=== PATIENT | female | born 1955 | race Caucasian/White ===

== ENCOUNTER 2017-01-27 14:11 | Emergency (ER) | payer SELFPAY ==
[2017-01-27 14:12] VITALS: BMI 25.8
[2017-01-27 14:52] VITALS: TEMP 98.2; O2SAT 100
--- NOTE | 2017-01-27 16:09 | C.PDOC ---
History Of Present Illness 61-year-old female, PMhx includes Hypertension, presents to the emergency department requesting medication refill. Patient states she is visiting from , and ran out of her Atenolol today. She denies physical complaints - no shortness of breath, chest pain, palpitations, KRAUSE, dizziness. Time Seen by Provider: 01/27/17 14:42 Chief Complaint (Nursing): Med Refill History Per: Patient History/Exam Limitations: no limitations Severity: None Past Medical History Reviewed: Historical Data, Nursing Documentation, Vital Signs Vital Signs: Last Vital Signs Temp 98.2 F 01/27/17 14:48 Pulse 54 L 01/27/17 16:33 Resp 17 01/27/17 16:33 BP 201/102 H 01/27/17 16:33 Pulse Ox 100 01/27/17 18:32 - Medical History PMH: HTN Family History: States: No Known Family Hx - Social History Hx Tobacco Use: No Hx Alcohol Use: No Hx Substance Use: No - Immunization History Hx Tetanus Toxoid Vaccination: No Hx Influenza Vaccination: Yes Hx Pneumococcal Vaccination: No Review Of Systems Except As Marked, All Systems Reviewed And Found Negative. Constitutional: Negative for: Fever Cardiovascular: Negative for: Chest Pain, Palpitations Respiratory: Negative for: Cough, Shortness of Breath Gastrointestinal: Negative for: Nausea, Vomiting, Abdominal Pain, Diarrhea Musculoskeletal: Negative for: Back Pain Skin: Negative for: Rash Neurological: Negative for: Weakness, Numbness, Incoordination, Confusion, Headache, Dizziness Physical Exam - Physical Exam Appears: Well, Non-toxic, No Acute Distress Skin: Warm, Dry, No Rash Head: Atraumatic, Normacephalic Eye(s): bilateral: Normal Inspection, PERRL, EOMI Oral Mucosa: Moist Cardiovascular: Rhythm Regular Respiratory: Normal Breath Sounds, No Rales, No Rhonchi, No Wheezing Extremity: Normal ROM Neurological/Psych: Oriented x3 Gait: Steady ED Course And Treatment O2 Sat by Pulse Oximetry: 100 (RA) Pulse Ox Interpretation: Normal Progress Note: Patient given PO atenolol. Reevaluation Time: 16:15 Reassessment Condition: Improved (Patient reassessed, is resting comfortably, denies any current symptoms. Patient given Rx for her atenolol, and instructed to follow up in the medical clinic in 1-2 days for further eval of BP/future refills. She understands she should return to ED if symptoms worsen.) Disposition Counseled Patient/Family Regarding: Diagnosis, Need For Followup, Rx Given - Disposition Referrals: [facility] [Outside] Disposition: HOME/ ROUTINE Disposition Time: 16:15 Condition: STABLE Additional Instructions: SEGUIMIENTO CON JARVIS DOCTOR / CLNICA EN 1-2 GONZALEZ USTED NECESITA OBTENER JARVIS MEDICIN DE PRESIN ARTERIAL DE JARVIS DOCTOR / CLNICA EN EL FUTURO! DEVUELVA A LA TORIE DE EMERGENCIA SI TIENE CUALQUIER SNTOMA PREOCUPANTE Prescriptions: Atenolol [Tenormin] 100 mg PO DAILY #30 tablet Instructions: Hypertension (ED), Medicine Refill (ED) Print Language: KINYARWANDA - Clinical Impression Clinical Impression: Hypertension, Medication refill - Scribe Statement The provider has reviewed the documentation as recorded by the Scribe Matt Velazquez All medical record entries made by the Scribe were at my direction and personally dictated by me. I have reviewed the chart and agree that the record accurately reflects my personal performance of the history, physical exam, medical decision making, and the department course for this patient. I have also personally directed, reviewed, and agree with the discharge instructions and disposition.
[2017-01-27 16:34] VITALS: BP 201/102; PULSE 54; RESP 17
== END 2017-01-27 16:35 | disposition home or self-care (01) ==
LOC: C.ER 14:11
DX: Z76.0 Encounter for issue of repeat prescription (principal); I10 Essential (primary) hypertension

== ENCOUNTER 2018-11-23 11:27 | Emergency (ER) | payer SELFPAY ==
[2018-11-23 11:27] VITALS: BMI 25.8
[2018-11-23 11:45] VITALS: RESP 16; TEMP 98.1; O2SAT 98
--- NOTE | 2018-11-23 11:45 | C.PDOC ---
History Of Present Illness 63 y/o female with a PMHx of HTN, presents to the ED complaining of low back pain for 2 weeks. States she missed a chair when attempting to sit and fell. Patient now complains of bilateral low back pain, worse with movement. No extremity weakness, numbness, or paresthesias. Otherwise she denies any fever, chills, or urinary complaints. Time Seen by Provider: 11/23/18 11:42 Chief Complaint (Nursing): Back Pain History Per: Patient History/Exam Limitations: no limitations Onset/Duration Of Symptoms: Days Current Symptoms Are (Timing): Still Present Past Medical History Reviewed: Historical Data, Nursing Documentation, Vital Signs Vital Signs: Last Vital Signs Temp 98.1 F 11/23/18 11:38 Pulse 71 11/23/18 11:38 Resp 16 11/23/18 11:38 BP 188/118 H 11/23/18 11:38 Pulse Ox 98 11/23/18 11:38 - Medical History PMH: HTN Denies: Chronic Kidney Disease Family History: States: Unknown Family Hx - Social History Hx Tobacco Use: No Hx Alcohol Use: No Hx Substance Use: No - Immunization History Hx Tetanus Toxoid Vaccination: No Hx Influenza Vaccination: Yes Hx Pneumococcal Vaccination: No Review Of Systems Except As Marked, All Systems Reviewed And Found Negative. Constitutional: Negative for: Fever, Chills Cardiovascular: Negative for: Chest Pain Respiratory: Negative for: Shortness of Breath Gastrointestinal: Negative for: Nausea, Vomiting, Abdominal Pain Genitourinary: Negative for: Dysuria, Frequency, Hematuria Musculoskeletal: Positive for: Back Pain Neurological: Negative for: Weakness, Numbness, Incoordination Physical Exam - Physical Exam Appears: Well, Non-toxic, No Acute Distress Skin: Normal Color, Warm, Dry Head: Atraumatic, Normacephalic Eye(s): bilateral: Normal Inspection, PERRL, EOMI Oral Mucosa: Moist Neck: Normal ROM Chest: Symmetrical Respiratory: No Accessory Muscle Use, Other (No respiratory distress) Back: No Vertebral Tenderness, Paraspinal Tenderness (to bilateral paralumbar areas), Other (No step off or deformity) Extremity: Bilateral: Atraumatic, Normal Color And Temperature, Normal ROM Neurological/Psych: Oriented x3, Normal Motor, Normal Sensation Gait: Steady ED Course And Treatment O2 Sat by Pulse Oximetry: 98 (RA) Pulse Ox Interpretation: Normal Medical Decision Making Medical Decision Making: Impression: Low back pain far off midline , no midline ttp stepoffs. suspect msk pain. no clincial concern for acute fx. Plan: * 30 mg IM Toradol Patient is stable for discharge home. Provided with RX for muscle relaxant and pain medication. Advised to follow up with PMD or return if worse. Disposition - Disposition Referrals: Michael Couch MD [Non-Staff] - Disposition: HOME/ ROUTINE Disposition Time: 12:00 Condition: STABLE Additional Instructions: follow up with your doctor/clinic. return to any er with worsneing. you will need further testing and workup as an outpatient. Prescriptions: Cyclobenzaprine [Cyclobenzaprine HCl] 10 mg PO DAILY PRN #10 tab PRN Reason: Muscle Spasm Naproxen [Naprosyn] 500 mg PO BID PRN #14 tab PRN Reason: Pain, Mild (1-3) Instructions: Low Back Pain (DC) Forms: [employer] (Northern Irish) - Clinical Impression Clinical Impression: Low back pain, Low back strain - Scribe Statement The provider has reviewed the documentation as recorded by the Gracie Turner Provider Attestation: All medical record entries made by the Gracie were at my direction and personally dictated by me. I have reviewed the chart and agree that the record accurately reflects my personal performance of the history, physical exam, medical decision making, and the department course for this patient. I have also personally directed, reviewed, and agree with the discharge instructions and disposition.
[2018-11-23 12:07] VITALS: BP 169/82; PULSE 72
== END 2018-11-23 12:08 | disposition home or self-care (01) ==
LOC: C.ER 11:27
DX: S39.012A Strain of muscle, fascia and tendon of lower back, initial encounter (principal); W18.39XA Other fall on same level, initial encounter
CPT/HCPCS: 96372; 99283; J1885

== ENCOUNTER 2018-12-24 13:38 | Emergency (ER) | payer SELFPAY ==
[2018-12-24 13:39] VITALS: BMI 25.8
[2018-12-24 13:55] VITALS: RESP 18
[2018-12-24] MEDS ORDERED: Dexamethasone 4 mg/1 ml IM STA (15:00)
[2018-12-24] MEDS ORDERED: Dexamethasone 4 mg/1 ml ONE (15:27)
--- NOTE | 2018-12-24 16:01 | RAD ---
Date of service: 12/24/2018 HISTORY: pleuritic chest pain COMPARISON: 11/30/2014 TECHNIQUE: Chest PA and lateral views FINDINGS: LUNGS: Current lung volumes greater than before. No consolidation. Clear lungs. PLEURA: No significant pleural effusion identified. No pneumothorax apparent. CARDIOVASCULAR: There is presence of aortic atherosclerotic calcification on x-ray. Mild cardiomegaly-similar No significant appearing pulmonary venous congestion. OSSEOUS STRUCTURES: No significant abnormalities. VISUALIZED UPPER ABDOMEN: Normal. OTHER FINDINGS: None. IMPRESSION: No acute cardiopulmonary pathology noted. Other findings as above.
--- NOTE | 2018-12-24 16:04 | RAD ---
Date of service: 12/24/2018 PROCEDURE: Radiographs of the Lumbar Spine. HISTORY: low back injury COMPARISON: No prior. TECHNIQUE: 3 views obtained. FINDINGS: BONES: There is 5 mm degenerative retrolisthesis of L1 on L2. There is normal lumbar lordosis. There is severe diffuse bone demineralization. There is an age indeterminate superior endplate compression fracture deformity in the T12 vertebral body. DISC SPACES: There is mild multilevel degenerative disc disease with anterior osteophytes, reduced disc heights and multilevel facet arthropathy, worse at L1-2. OTHER FINDINGS: There are no pathologic soft tissue calcifications. Both sacroiliac joints are normal. IMPRESSION: 1. Age indeterminate superior endplate compression fracture deformity in the T12 vertebral body. 2. Multilevel degenerative disc disease, worse at L1-2.
--- NOTE | 2018-12-24 17:11 | C.PDOC ---
History Of Present Illness Patient is a 63 year old female who presents to the ED c/o back pain that began 3 weeks ago when she fell off of a chair at home. Patient reports that she was initially seen in the ED 3 weeks ago and was given pain medications and discharged. She states that she still has pain that has worsened now. She denies any new injury, weakness, numbness, abdominal pain, saddle anesthesia, bowel or bladder incontinence. - HPI Time Seen by Provider: 12/24/18 14:19 Chief Complaint (Nursing): Back Pain History Per: Patient History/Exam Limitations: no limitations Onset/Duration Of Symptoms: Other (3 weeks) Recent travel outside of the [place]: No Additional History Per: Patient Past Medical History Reviewed: Historical Data, Nursing Documentation, Vital Signs Vital Signs: Last Vital Signs Temp 98 F 12/24/18 13:52 Pulse 88 12/24/18 14:58 Resp 18 12/24/18 13:52 BP 193/94 H 12/24/18 16:16 Pulse Ox 99 12/24/18 13:52 - Medical History PMH: HTN Denies: Chronic Kidney Disease Surgical History: No Surg Hx Family History: States: Unknown Family Hx - Social History Hx Tobacco Use: No Hx Alcohol Use: No Hx Substance Use: No - Immunization History Hx Tetanus Toxoid Vaccination: No Hx Influenza Vaccination: Yes Hx Pneumococcal Vaccination: No Review Of Systems Except As Marked, All Systems Reviewed And Found Negative. Gastrointestinal: Negative for: Diarrhea, Constipation Genitourinary: Negative for: Dysuria, Incontinence, Hematuria Musculoskeletal: Positive for: Back Pain Neurological: Negative for: Weakness, Numbness Physical Exam - Physical Exam Appears: Non-toxic, No Acute Distress Skin: Normal Color, Warm, Dry Head: Atraumatic, Normacephalic Eye(s): bilateral: Normal Inspection Oral Mucosa: Moist Neck: Normal ROM, Supple Chest: Symmetrical, No Deformity Cardiovascular: Rhythm Regular, No Murmur Respiratory: Normal Breath Sounds, No Rales, No Rhonchi, No Wheezing Gastrointestinal/Abdominal: Soft, No Tenderness Back: Other (right sided paralumbar tenderness) Extremity: Other (no straight leg raise) Pulses: Left Dorsalis Pedis: Normal, Right Dorsalis Pedis: Normal Neurological/Psych: Oriented x3, Normal Speech, Normal Cognition, Normal Motor, Normal Sensation ED Course And Treatment O2 Sat by Pulse Oximetry: 99 (on RA) Pulse Ox Interpretation: Normal - Other Rad CXR X-Ray: Viewed By Me, Read By Radiologist Interpretation: Date of service: 12/24/2018. HISTORY: pleuritic chest pain. COMPARISON: 11/30/2014. TECHNIQUE: Chest PA and lateral views. FINDINGS: LEANDRA NGS: Current lung volumes greater than before. No consolidation. Clear lungs. PLEURA: No significant pleural effusion identified. No pneumothorax apparent. CARDIOVASCULAR: There is presence of aortic atherosclerotic calcification on x- ray. Mild cardiomegaly-similar No significant appearing pulmonary venous congestion. OSSEOUS STRUCTURES: No significant abnormalities. VISUALIZED UPPER ABDOMEN: Normal. OTHER FINDINGS: None. IMPRESSION: No acute cardiopulmonary pathology noted. Other findings as above. Xray LS Spine X-Ray: Viewed By Me, Read By Radiologist Interpretation: Date of service: 12/24/2018. PROCEDURE: Radiographs of the Lumbar Spine. HISTORY: low back injury. COMPARISON: No prior. TECHNIQUE: 3 views obtained. FINDINGS: BONES: There is 5 mm degenerative retrolisthesis of L1 on L2. There is normal lumbar lordosis. There is severe diffuse bone demineralization. There is an age indeterminate superior endplate compression fracture deformity in the T12 vertebral body. DISC SPACES: There is mild multilevel degenerative disc disease with anterior osteophytes, reduced disc heights and multilevel facet arthropathy, worse at L1-2. OTHER FINDINGS: There are no pathologic soft tissue calcifications. Both sacroiliac joints are normal. IMPRESSION: 1. Age indeterminate superior endplate compression fracture deformity in the T12 vertebral body. 2. Multilevel degenerative disc disease, worse at L1-2. Medical Decision Making Medical Decision Making: Plan: Decadron 8mg IM Toradol 30mg IM Xray LS SPine CXR Disposition - Disposition Referrals: Nikolai Meredith MD [Staff Provider] - Disposition: HOME/ ROUTINE Disposition Time: 17:08 Condition: GOOD Additional Instructions: Follow up with the medical doctor within 1-2 days without fail. Return if worsened/ Prescriptions: Atenolol [Tenormin] 100 mg PO DAILY #90 tablet Cyclobenzaprine [Flexeril] 5 mg PO TID #21 tab Naproxen 375 mg PO BID #20 tablet Instructions: Low Back Pain (DC) Forms: [employer] ([place]) Print Language: WELSH - Clinical Impression Clinical Impression: Compression fracture of body of thoracic vertebra - PA / FIRE CONTROL ASSISTANT / Resident Statement MD/DO has examined the patient and agrees with the treatment plan. - Scribe Statement The provider has reviewed the documentation as recorded by the Gracie Arenas All medical record entries made by the Gracie were at my direction and personally dictated by me. I have reviewed the chart and agree that the record accurately reflects my personal performance of the history, physical exam, medical decision making, and the department course for this patient. I have also personally directed, reviewed, and agree with the discharge instructions and disposition.
[2018-12-24 17:26] VITALS: BP 181/90; PULSE 79; TEMP 97.4
[2018-12-24 18:47] VITALS: O2SAT 99
== END 2018-12-24 17:26 | disposition home or self-care (01) ==
LOC: C.ER 13:38
DX: M48.54XA Collapsed vertebra, not elsewhere classified, thoracic region, initial encounter for fracture (principal); W07.XXXA Fall from chair, initial encounter; Y92.009 Unspecified place in unspecified non-institutional (private) residence as the place of occurrence of the external cause; I10 Essential (primary) hypertension
CPT/HCPCS: 71046; 72100; 96372; 99285; J1100; J1885